=== PATIENT | female | born 1960 | race Caucasian/White ===

== ENCOUNTER 2019-03-11 06:59 | Outpatient (RCR) | payer OTHER | END 2019-03-23 | LOC: PT 06:59 | PROVIDERS: ATTEND Specialist | DX: M23.92 Unspecified internal derangement of left knee (principal) ==

== ENCOUNTER → 2019-04-01 | Outpatient (CLI) | payer OTHER ==
--- NOTE | 2019-04-01 10:49 | Diagnostic Imaging Report ---
Left knee MRI without contrast. History: Knee pain. Internal derangement. Decreased range of motion. Trauma. Comparison: None. Technique: Multiplanar multi-sequence MRI of the knee without contrast. Findings: Medial compartment: No meniscal tear, cartilage abnormality, or MCL tear. Lateral compartment: No meniscal tear or cartilage abnormality. The LCL complex is normal. Minimally depressed intra-articular fracture involving the anterior lateral femoral condyle with associated bone marrow edema best seen on coronal image 11. Minimally depressed intra-articular fracture involving the peripheral lateral tibial plateau with associated bone marrow edema best seen on coronal image 12. Intercondylar notch: The ACL and PCL are intact. Patellofemoral compartment: No chondromalacia or patellar dislocation. Extensor mechanism: The quadriceps and patellar tendons are normal. Other findings: There is a joint effusion and synovitis. There is no acute fracture, subluxation or avascular necrosis. Small Navarrete's cyst IMPRESSION: Minimally depressed intra-articular fracture involving the anterior lateral femoral condyle with associated bone marrow edema best seen on coronal image 11. Minimally depressed intra-articular fracture involving the peripheral lateral tibial plateau with associated bone marrow edema best seen on coronal image 12. No meniscal tear, collateral ligament tear or cruciate ligament tear. Signed by: Dr. Pepe Ardon M.D. on 04/01/2019 10:46 AM
== END ==
LOC: MRI 09:30
PROVIDERS: ATTEND Specialist
DX: M23.92 Unspecified internal derangement of left knee (principal)